=== PATIENT | female | born 2000 | race Caucasian/White ===

== ENCOUNTER 2022-06-20 10:45 | Day surgery (SDC) | payer MEDICAID, OTHER ==
[2022-06-20] MEDS ORDERED: Sodium Chloride 0.9(Preservative Free) 10 ML IJ ONE (10:46)
[2022-06-20] MEDS ORDERED: Depo-Medrol 40 MG/ML IM ONE (10:46)
[2022-06-20] MEDS ORDERED: Lactated Ringers 1,000 ML IV ONE (12:27)
[2022-06-20] MEDS ORDERED: DIPRIVAN 200 MG/20 ML IV ONE ×2 (12:43→12:52)
--- NOTE | 2022-06-20 16:44 | XRAY ---
Indication: Left L4-S1 transforaminal GLORIA. Intraoperative fluoroscopy provided for 31 seconds. 5 digital spot image submitted for interpretation demonstrates posterior needle tips projecting over the expected left L4 and L5 nerve roots. Small amount of contrast injected for needle tip placement. Correlate with intraoperative findings/report.
--- NOTE | 2022-06-20 16:48 | XRAY ---
31 seconds fluoroscopy time in surgery for left L4-S1 transforaminal GLORIA.
== END 2022-06-20 13:15 | disposition home or self-care (01) ==
LOC: SDC-PAIN 10:45
PROVIDERS: ATTEND Psychiatry & Neurology Pain Medicine
DX: M54.16 Radiculopathy, lumbar region (principal); Z79.899 Other long term (current) drug therapy
CPT/HCPCS: 64483; 64484; 72100; 77003; 81025; J1030; J2704; Q9966